=== PATIENT | male | born 1935 ===

== ENCOUNTER 2022-03-13 21:56 | Inpatient (IN) | payer MEDICARE ==
[~2022-03-13] VITALS: Ht 180.3 cm; Wt 108.9 kg
[2022-03-13] MEDS ORDERED: IV NORMAL SALINE 1000 ML BAG IV ONE (22:15)
[2022-03-13] MEDS ORDERED: TDAP DIPH,PERTUSS,TET VAC/PF 0.5 ML DISP.SYRIN IM ONE ×2 (22:15→23:03)
[2022-03-13] MEDS ORDERED: NEOMY/BACITRA/POLYMYXIN B OINT UD PACKET TP ONE ×2 (22:15→23:03)
[2022-03-13 22:48] LABS: HEMATOCRIT 41.3 % (36.7-47.1); MEAN CORPUSCULAR HEMOGLOBIN 32.7 uug (23.8-33.4); PLATELET COUNT (AUTO) 228 K/uL (152-348)
[2022-03-13 22:52] LABS: CARBON DIOXIDE 22 mmol/L (21-32); CHLORIDE 105 mmol/L (98-107); CREATININE 1.2 mg/dL (0.6-1.3); GLUCOSE 125 mg/dL (74-106); POTASSIUM 4.2 mmol/L (3.5-5.1); UREA NITROGEN, BLOOD 23 mg/dL (7-18)
[2022-03-14] MEDS ORDERED: ASPIRIN 81 MG TAB.CHEW PO ONE (00:15)
[2022-03-14] MEDS ORDERED: IV NORMAL SALINE 1000 ML BAG IV ONE (00:15)
[2022-03-14] MEDS ORDERED: NITROGLYCERIN OINT 1 GM PACKET TP ONE ×2 (01:15→01:17)
--- NOTE | 2022-03-14 01:22 | NUR ---
Dr Quigley spoke to Dr Kumar for cardiology consult.
[2022-03-14] MEDS ORDERED: METOPROLOL TARTRATE 5 MG/5 ML VIAL IVP ONE (01:30)
[2022-03-14] MEDS ORDERED: REMEDY ESSENTIAL ZINC PASTE 113 GM TP PRN (02:00)
[2022-03-14] MEDS ORDERED: IV NS 1000 ML 1,000 ML IV PRN (02:00)
[2022-03-14] MEDS ORDERED: MAGNESIUM HYDROXIDE 30 ML LIQUID UDC PO PRN (02:00)
[2022-03-14] MEDS ORDERED: MORPHINE SULFATE 2 MG/1 ML DISP.SYRIN IV PRN (02:00)
[2022-03-14] MEDS ORDERED: ACETAMINOPHEN 325 MG TABLET PO PRN (02:00)
[2022-03-14] MEDS ORDERED: ONDANSETRON 4 MG/2 ML VIAL IV PRN (02:00)
[2022-03-14 07:10] LABS: HEMATOCRIT 38.2 % (36.7-47.1); MEAN CORPUSCULAR HEMOGLOBIN 32.6 uug (23.8-33.4); MEAN CORPUSCULAR VOLUME 96.7 fL (73.0-96.2); PLATELET COUNT (AUTO) 201 K/uL (152-348)
[2022-03-14 07:20] LABS: MAGNESIUM 1.9 mg/dL (1.8-2.4); PHOSPHOROUS 2.7 mg/dL (2.5-4.9); POTASSIUM 4.7 mmol/L (3.5-5.1)
[2022-03-14 07:34] LABS: THYROID STIMULATING HORMONE 1.374 mIU/mL (0.358-3.740)
[2022-03-14] MEDS ORDERED: ENOXAPARIN SODIUM 120 MG/0.8 ML SYRINGE SQ ONE (08:00)
--- NOTE | 2022-03-14 08:00 | NUR ---
RECEIVED PT ON BED FROM ER. AWAKE. NO ACUTE DISTRESS NOTED. NO COMPLAIN OF PAIN. PT VITALS WNL. WILL CONT TO MONITOR.
[2022-03-14] MEDS ORDERED: ASPIRIN 81 MG TAB.CHEW PO SCH (09:00)
[2022-03-14] MEDS ORDERED: PANTOPRAZOLE SODIUM 40 MG VIAL IV SCH (09:00)
[2022-03-14] MEDS: METOPROLOL TARTRATE 25 MG TABLET PO SCH ×2 (09:35→20:32)
[2022-03-14] MEDS: ENOXAPARIN SODIUM 60 MG/0.6 ML DISP.SYRIN SQ SCH ×2 (09:37→20:31)
[2022-03-14 12:07] VITALS: BP 107/48
[2022-03-14] MEDS ORDERED: ATOR40TA PO (14:53)
[2022-03-14] MEDS ORDERED: METO25TA6 PO (14:53)
[2022-03-14] MEDS ORDERED: ENOX60DI SQ (14:53)
[2022-03-14] MEDS ORDERED: ASPI81TA31 PO (14:53)
[2022-03-14 15:06] LABS: *BILIRUBIN,URIN NEGATIVE (NEGATIVE); *CLARITY,URINE SLIGHTLY CLOUDY (CLEAR); *COLOR,URINE YELLOW (YELLOW); *KETONES,URINE NEGATIVE (NEGATIVE); *UROBILINOGEN,URINE 0.2 E.U./dl (NORMAL); LEUKOCYTE ESTERASE ,URINE 1+ (NEGATIVE); NITRITE, URINE POSITIVE (NEGATIVE); PH,URINE 5.5 (5.0-8.0); UGLUCOSE NEGATIVE (NEGATIVE)
[2022-03-14 15:35] LABS: *BLOOD, URINE TRACE INTACT (NEGATIVE)
[2022-03-14] MEDS ORDERED: CEFT1VIA15 IV (15:45)
[2022-03-14 16:23] VITALS: BP 109/61
[2022-03-14] MEDS ORDERED: CEFTRIAXONE 1 G in IV DEXTROSE 5% 50 ML IV SCH (17:00)
[2022-03-14 18:37] LABS: BACTERIA,URINE FEW /HPF (NONE SEEN); SQUAMOUS EPITHELIAL CELL,UR FEW /HPF (NONE SEEN)
[2022-03-14 18:38] LABS: MUCUS,URINE FEW /LPF (0-FEW)
--- NOTE | 2022-03-14 18:51 | NUR ---
SHIFT NOTE. PT AOX4 NO COMPLAIN OF PAIN. NO ACUTE DISTRESS NOTED. PT TROPONIN IS ELEVATED. MD NOTIFIED. POC IS PT TO GO TO [facility] FOR CARDIAC CATH [facility] WITH DR. WEINSTEIN. PT IS DISCHARGE. PT WILL GO TO [facility] FOR CARDIAC CATH. AMBULANCE WILL PICKUP AT 1999. REPORT GIVEN TO LILLY DEJESUS. SUKHDEV WALTER N.P WILL RECEIVED PT.
[2022-03-14 20:00] VITALS: BP 119/80
[2022-03-14] MEDS ORDERED: ATORVASTATIN 40 MG TABLET PO SCH (21:00)
[2022-03-15] VITALS: BP 128/58
[2022-03-15 04:00] VITALS: BP 133/79
--- NOTE | 2022-03-15 06:49 | NUR ---
Patient instructed NPO after midnight, verbalized understanding. Transfer to [facility] did not happen. No available transport with ACLS nurse to accompany patient. Nursing supervisors both aware, will follow up in the morning. Family aware of above.
[2022-03-15 07:18] LABS: HEMATOCRIT 35.2 % (36.7-47.1); MEAN CORPUSCULAR HEMOGLOBIN 33.5 uug (23.8-33.4); MEAN CORPUSCULAR VOLUME 96.8 fL (73.0-96.2); PLATELET COUNT (AUTO) 186 K/uL (152-348)
[2022-03-15 07:51] LABS: CREATININE 0.9 mg/dL (0.6-1.3); MAGNESIUM 2.2 mg/dL (1.8-2.4); PHOSPHOROUS 2.1 mg/dL (2.5-4.9); POTASSIUM 3.9 mmol/L (3.5-5.1)
--- NOTE | 2022-03-15 08:40 | NUR ---
pt was pick out hand by [facility]. pt will go to [facility].
[2022-03-15 08:53] LABS: EOSINOPHILS % (MANUAL) 4 % (0-8); LYMPHOCYTES % (MANUAL) 8 % (20-40); MONOCYTES % (MANUAL) 10 % (2-10); NEUTROPHILS % (MANUAL) 78 % (42-75)
[2022-03-15] MEDS ORDERED: CEFTRIAXONE 2 G in IV DEXTROSE 5% 100 ML IV SCH (17:00)
== END 2022-03-15 08:40 | disposition short-term general hospital (02) | DRG 871 ==
LOC: ER 22:00 → TELE3 03-14 02:09
PROVIDERS: ADMIT Nurse Practitioner Family; ATTEND Nurse Practitioner Family
DX: A41.9 Sepsis, unspecified organism (principal); I21.A1 Myocardial infarction type 2; I48.92 Unspecified atrial flutter; M62.82 Rhabdomyolysis; N39.0 Urinary tract infection, site not specified; I25.10 Atherosclerotic heart disease of native coronary artery without angina pectoris; S51.012A Laceration without foreign body of left elbow, initial encounter; Z87.891 Personal history of nicotine dependence; W19.XXXA Unspecified fall, initial encounter; Y93.9 Activity, unspecified; Y92.009 Unspecified place in unspecified non-institutional (private) residence as the place of occurrence of the external cause; I95.1 Orthostatic hypotension; B96.89 Other specified bacterial agents as the cause of diseases classified elsewhere
CPT/HCPCS: 36415; 70030-TC; 71045; 73090; 83735; 84100; 84443; 84484; 85025; 87086; 90715; 93005; 93307; A4663; C9113; G0378; J0696; J1650; J7040